=== PATIENT | male | born 1995 | race Caucasian/White ===

== ENCOUNTER 2022-08-07 11:50 | Emergency (ER) | payer OTHER ==
[2022-08-07] MEDS ORDERED: Ketorolac 30 MG/ML SDV IVPUSH ONE (12:17)
[2022-08-07] MEDS ORDERED: Sodium Chloride 0.9% 10 ML Syringe FLUSH PRN (12:18)
== END 2022-08-07 14:40 | disposition home or self-care (01) ==
LOC: JD.ED 11:50
DX: S29.012A Strain of muscle and tendon of back wall of thorax, initial encounter (principal); Z88.8 Allergy status to other drugs, medicaments and biological substances; Z79.899 Other long term (current) drug therapy; Z72.0 Tobacco use
CPT/HCPCS: 36415; 74176; 80053; 81003; 85025; 96374; 99284; J1885; J3490

== ENCOUNTER 2023-12-06 20:48 | Emergency (ER) | payer OTHER ==
[2023-12-06] MEDS: Ibuprofen 800 MG Tab PO ONE (21:29)
== END 2023-12-06 22:35 | disposition home or self-care (01) ==
LOC: JD.ED 20:48
DX: S90.511A Abrasion, right ankle, initial encounter (principal); Z88.8 Allergy status to other drugs, medicaments and biological substances; W20.8XXA Other cause of strike by thrown, projected or falling object, initial encounter; Y93.89 Activity, other specified
CPT/HCPCS: 73590; 73610; 99283; A9270